=== PATIENT | male | born 1965 | race Caucasian/White ===

== ENCOUNTER → 2020-06-17 08:53 | Outpatient (CLI) | payer OTHER, SELFPAY ==
--- NOTE | ~2020-06-17 | XR_ITS ---
EXAMINATION: XR chest 2V EXAM DATE: 06/17/2020 09:12 INDICATION: Palpitations. TECHNIQUE: Frontal and lateral projections of the chest obtained and reviewed. There is no prior karl dy for comparison. FINDINGS: The lungs are clear. There are no pleural effusions. The cardiomediastinal silhouette is within normal limits. There is no pneumothorax suspected. The bones and soft tissues are unremarkab le. IMPRESSION: No acute cardiopulmonary findings. Reviewed, dictated and finalized at location A. SPECIALIST
== END ==
PROVIDERS: PCP Internal Medicine; Visit Provider Internal Medicine
DX: R00.2 Palpitations (principal)
CPT/HCPCS: 71046

== ENCOUNTER → 2021-10-02 10:51 | Outpatient (CLI) | payer OTHER, SELFPAY ==
--- NOTE | ~2021-10-02 | US_ITS ---
US abdomen limited DATE: 10/02/2021 11:11 INDICATION: Abnormal liver function tests TECHNIQUE: Real-time imaging of liver, pancreas, gallbladder COMPARISON: None FINDINGS: No hepatic or pancreatic space-occupying mass lesion is detected. Normal hepatopedal portal venous flow direction. No gallstones or gallbladder wall thickening or pericholecystic fluid collection. Negative sonographi c Portillo's sign. The common bile duct measures 4.4 mm, normal. IMPRESSION: Normal examination Reviewed, dictated and finalized at Location [facility]. Reviewed, dictated and finalized at location B. IMPRESSION: Normal examination
== END ==
PROVIDERS: PCP Internal Medicine; Visit Provider Internal Medicine
DX: R94.5 Abnormal results of liver function studies (principal)
CPT/HCPCS: 76705

== ENCOUNTER 2024-04-28 07:08 | Outpatient (CLI) | payer BC, SELFPAY | END 2024-04-28 07:09 | disposition home or self-care (01) | LOC: ANHLAB 07:08 | PROVIDERS: PCP Internal Medicine; Visit Provider Internal Medicine Nephrology | DX: E87.1 Hypo-osmolality and hyponatremia (principal) | CPT/HCPCS: 36415; 82533; 96372; J0834 ==

== ENCOUNTER 2025-03-24 12:51 | Outpatient (CLI) | payer BC, SELFPAY ==
--- NOTE | 2025-03-24 13:20 | NEURO_ITS ---
Impression: # Borderline diabetic complains of increasing cramps and numbness of lower extremities. ? # Axonal Neuropathy with neurogenic changes on Needle/ EMG exam. No fibrillations noted. Nerve Conduction Studies ?Stim Site NR Peak (ms) P-T Amp (?V) Site1 Site2 Delta-P (ms) Dist (cm) Shine (m/s) Left Sup Fibular Anti Sensory (Ant Lat Mall) 14 cm ? 4.9 6.5 14 cm Ant Lat Mall 4.9 16.0 33 Right Sup Fibular Anti Sensory (Ant Lat Mall) 14 cm ? 4.6 8.6 14 cm Ant Lat Mall 4.6 16.0 35 Left Sural Anti Sensory (Lat Mall) Calf ? 3.3 21.1 Calf Lat Mall 3.3 16.0 48 Right Sural Anti Sensory (Lat Mall) Calf ? 3.5 17.2 Calf Lat Mall 3.5 16.0 46 ?Stim Site NR Onset (ms) O-P Amp (mV) Site1 Site2 Delta-0 (ms) Dist (cm) Shine (m/s) Left Peroneal Motor (Vastus Med) Ankle ? 4.2 1.7 Popit Ankle 10.6 45.0 42 Popit ? 14.8 1.4 Right Peroneal Motor (Vastus Med) Ankle ? 2.7 0.2 Popit Ankle 10.8 43.0 40 Popit ? 13.5 0.1 Left Tibial Motor (Abd Glass Brev) Ankle ? 4.6 2.0 Knee Ankle 11.5 46.0 40 Knee ? 16.1 1.3 Right Tibial Motor (Abd Glass Brev) Ankle ? 4.5 1.1 Knee Ankle 11.0 44.0 40 Knee ? 15.5 1.1 F Wave Studies ?NR F-Lat (ms) L-R F-Lat (ms) Left Peroneal (Mrkrs) (EDB) ? 60.59 Right Peroneal (Mrkrs) (EDB)??? DISPERSED RESPONSE NR Left Tibial (Mrkrs) (Abd Hallucis) ? 71.76 2.07 Right Tibial (Mrkrs) (Abd Hallucis) ? 69.69 2.07 Electromyography ?Side Muscle Nerve Root Ins Act Fibs Amp Dur Recrt Comment Right AntTibialis Dp Br Fibular L4-5 Nml Nml Nml >12ms +1 Left AntTibialis Dp Br Fibular L4-5 Nml Nml Nml >12ms +1 Right Ext Dig Brev Dp Br Fibular L5, S1 Nml Nml Nml >12ms +1 Left Ext Dig Brev Dp Br Fibular L5, S1 Nml Nml Nml >12ms +1 Right Fibularis Long Sup Br Fibular L5-S1 Nml Nml Nml >12ms +1 Left Fibularis Long Sup Br Fibular L5-S1 Nml Nml Nml >12ms +1 Right Flex Dig Long Tibial L5-S2 Nml Nml Nml >12ms +2 Left Flex Dig Long Tibial L5-S2 Nml Nml Nml >12ms +2 Right Gastroc Tibial S1-2 Nml Nml Nml >12ms +1 Left Gastroc Tibial S1-2 Nml Nml Nml >12ms +1 Right QuadratusFem QuadFemoris L4-5, S1 Nml Nml Nml Nml Nml Left QuadratusFem QuadFemoris L4-5, S1 Nml Nml Nml Nml Nml ?
--- OUTSIDE RECORDS SUMMARY | 2025-03-24 14:08 | XMS_ITS | Data Portability ---
[facility] [address] [place] [address] Care Team Providers Care Deputy Chief Counsel Name Role Phone WOLFEDAVID Primary Care Provider Assessment Encounter Date Assessment Date Assessment LastModified by Organization Details LastModified Time 10/01/2023 10/01/2023 Had a colonoscop y last year he refuses any immunizations we will continue with current therapy all questions have been answered diagnosis and the assessment and plan of been discussed follow-up in 6 months Not available 10/11/2023 22:43:30 03/31/2024 03/31/2024 hypertension controlled GERD doing well on his PPI we will consider deescalating to H2 eileen in next visit or so psoriasis stable hyperlipidemia low-fat diet. Hyponatremia has been referred to Nephrology. He refuses immunizations he had a colonoscopy at [place] we are requesting the results he will see me in 4 months continue current therapy. As far as his hyponatremia is concerned he appears clinically euvolemic. Not available 04/05/2024 09:31:25 05/29/2024 05/29/2024 medications have been reviewed we will try to get the official reads on the MRI of the brain as well as the echo in the right upper quadrant ultrasound. Notes from hospital state LFTs normalized prior to discharge speech physical therapy and [facility] patient will therapy consults. He does have some paperwork to be filled out it sounds like for short term disability I have directed him to get those to his neurologist who will be making determinations about fitness for work. He will see me back in a month his blood pressure today looks good there has been continued improvement albeit slowly in his neurological status hospital records I do have access to have been reviewed. Healthy lifestyle care instructions [email or web address] Not available 05/30/2024 15:43:51 01/27/2025 01/27/2025 We will continue current therapy blood work has been ordered NCS and ABIs of the legs he will follow up with neurologist well for stroke [email or web address] Not available 01/27/2025 21:48:04 Plan of Treatment Reminders Order Date Submit Date Provider Last Modified By Organization Details Last Modified Time Details Appointments ANY 15 2025 03:00P M David Wolfe MD Not available Not available Not available Lab PSA, serum or plasma 2023 024 [place] [facility] [place] [facility], [address], [address], [place], [address], 12/21/2023 02:53:53 CMP, serum or plasma - Please send copy of results to Dr Glenn Alcantar also. fax 2023 024 [place] [facility] [place] [facility], [address], [place], [address], 12/21/2023 02:53:52 lipid panel, serum 2023 024 [place] [facility], [address], [place], [address], 12/21/2023 02:53:51 CBC w/ auto diff 2023 024 [place] [facility], [address], [place], [address], 12/21/2023 02:53:52 Referral physical therapist referral [address] (Outpatient Physical Therapy), [address], [place], [address], 07/03/2024 23:11:13 occupatio nal therapist referral [address] [facility], [address], [place], [address], 07/03/2024 23:11:13 speech therapy referral [address] [facility], [address], [place], [address], 07/03/2024 23:11:13 Procedures None recorded. Surgeries None recorded. Imaging nerve conductio n study - NCS B/L legs. 2024 025 [facility] (Cardiology & Emg), [address], [place], [address], 02/26/2025 12:39:39 Medication Orders None recorded. Patient TargetsNo targets recorded. Patient Instructions Encounter Date Encounter Id Patient Instructions Last Modified By Organization Details Last Modified Time 03/31/2024 [id number] A healthy lifestyle: care instructions [place] [id number] Not available 03/31/2024 20:43:02 05/29/2024 [id number] A healthy lifestyle: care instructions [email or web address] Not available 05/29/2024 17:10:26 01/27/2025 [id number] eating healthy foods: care instructions [email or web address] Not available 01/27/2025 22:14:17 (HENRY) ankle brachial index* [email or web address] Not available 03/19/2025 09:42:02 Reason for Referral Physical Therapist Referral for Cerebrovascular accident Referring Physician: David Wolfe, Internal Medicine, Encounter Date: 05/29/2024 Occupational Therapist Refer ral for Cerebrovascular accident Referring Physician: David Wolfe, Internal Medicine, Encounter Date: 05/29/2024 Referring Physician: David Wolfe, Internal Medicine, Encounter Date: 05/29/2024 Results Created Date Observation Date Name Description Value Unit Range Abnormal Flag Note LastModifiedBy Organization Detail LastModifiedTime 12/20/19 24 12/21/2023 LIPID PANEL , STAND LENCHO cholesterol, total 167 mg/dL <200 normal Not Available [facility] [place] [address] [place], [address], 12/21/2023 02:53:51 12/20/19 24 12/21/2023 LIPID PANEL , STAND LENCHO HDL cholesterol 83 mg/dL > or = 40 normal Not Available [place] [address] [address] [place], [address], 12/21/2023 02:53:51 12/20/19 24 12/21/2023 LIPID PANEL , STAND LENCHO triglyceride s 59 mg/dL <150 normal Not Available [facility] [place] [address] [address] [place], [address], 12/21/2023 02:53:51 12/20/19 24 12/21/2023 LIPID PANEL , STAND LENCHO LDL-choleste rol 70 mg/dL _(jennifer c) normal Refer ence range : <100 Girish able range <100 mg/dL for prima ry preve ntion ; <70 mg/dL for patie nts with CHD or diabe tic patie nts with > or = 2 CHD risk facto rs. LDL-C is now calcu lated using the Giselle n-Hop kins juanu marcelino n, which is a valid ated novel radha lenz than the Fried nicole equat ion in the estim ation of LDL-C . Giselle ojeda SS et al. SARI. 2013; 310(1 9): 2061- 2068 (http ://ed ucati on.Ronald medina [employer]. com/f aq/FA Q164) Not Available [address] [address] [place], [address], 12/21/2023 02:53:51 12/20/19 24 12/21/2023 LIPID PANEL , STAND LENCHO chol/HDLC ratio 2.0 (calc ) <5.0 normal Not Available [address] [address] [place], [address], 12/21/2023 02:53:51 12/20/19 24 12/21/2023 LIPID PANEL , STAND LENCHO non HDL cholesterol 84 mg/dL _(jennifer c) <130 normal For patie nts with diabe isaiah plus 1 major ASCVD risk facto r, treat ing to a non-H DL-C goal of <100 mg/dL (LDL- C of <70 mg/dL ) is lay see optio n. Not Available [address] [address] [place], [address], 12/21/2023 02:53:51 12/20/19 24 12/21/2023 COMPR EHENS MAICO METAB OLIC PANEL glucose 98 mg/dL 65-99 normal Fasti ng refer ence inter parmjit Not Available [address] [place], [address], 12/21/2023 02:53:52 12/20/19 24 12/21/2023 COMPR EHENS MAICO METAB OLIC PANEL urea nitrogen (BUN) 9 mg/dL 7-25 normal Not Available [address] [address] [place], [address], 12/21/2023 02:53:52 12/20/19 24 12/21/2023 COMPR EHENS MAICO METAB OLIC PANEL creatinine 0.95 mg/dL 0.70-1 .30 normal Not Available [address] [address] [place], [address], 12/21/2023 02:53:52 12/20/19 24 12/21/2023 COMPR EHENS MAICO METAB OLIC PANEL eGFR 94 mL/mi n/1.7 3m2 > or = 60 normal Not Available [address], [address], 12/21/2023 02:53:52 12/20/19 24 12/21/2023 COMPR EHENS MAICO METAB OLIC PANEL BUN/creatini ne ratio SEE NOTE: (calc ) 6-22 Not Repor maxi: BUN and Creat inine are withi n refer ence range . Not Available [facility] - [address], [address], 12/21/2023 02:53:52 12/20/19 24 12/21/2023 COMPR EHENS MAICO METAB OLIC PANEL sodium 130 mmol/ L 135-14 6 low Not Available [address], [address], 12/21/2023 02:53:52 12/20/19 24 12/21/2023 COMPR EHENS MAICO METAB OLIC PANEL potassium 5.0 mmol/ L 3.5-5. 3 normal Not Available [address], [address], 12/21/2023 02:53:52 12/20/19 24 12/21/2023 COMPR EHENS MAICO METAB OLIC PANEL chloride 95 mmol/ L 98-110 low Not Available [address], [address], 12/21/2023 02:53:52 12/20/19 24 12/21/2023 COMPR EHENS MAICO METAB OLIC PANEL carbon dioxide 28 mmol/ L 20-32 normal Not Available [address], [address], 12/21/2023 02:53:52 12/20/19 24 12/21/2023 COMPR EHENS MAICO METAB OLIC PANEL calcium 9.2 mg/dL 8.6-10 .3 normal Not Available [address], [address], 12/21/2023 02:53:52 12/20/19 24 12/21/2023 COMPR EHENS MAICO METAB OLIC PANEL protein, total 7.1 g/dL 6.1-8. 1 normal Not Available [address], [address], 12/21/2023 02:53:52 12/20/19 24 12/21/2023 COMPR EHENS MAICO METAB OLIC PANEL albumin 4.5 g/dL 3.6-5. 1 normal Not Available [address], [address], 12/21/2023 02:53:52 12/20/19 24 12/21/2023 COMPR EHENS MAICO METAB OLIC PANEL globulin 2.6 g/dL_ (calc ) 1.9-3. 7 normal Not Available [address], [address], 12/21/2023 02:53:52 12/20/19 24 12/21/2023 COMPR EHENS MAICO METAB OLIC PANEL albumin/glob ulin ratio 1.7 (calc ) 1.0-2. 5 normal Not Available [address], [address], 12/21/2023 02:53:52 12/20/19 24 12/21/2023 COMPR EHENS MAICO METAB OLIC PANEL bilirubin, total 0.6 mg/dL 0.2-1. 2 normal Not Available [address], [address], 12/21/2023 02:53:52 12/20/19 24 12/21/2023 COMPR EHENS MAICO METAB OLIC PANEL alkaline phosphatase 57 U/L 35-144 normal Not Available [address], [address], 12/21/2023 02:53:52 12/20/19 24 12/21/2023 COMPR EHENS MAICO METAB OLIC PANEL AST 35 U/L 10-35 normal Not Available [address], [address], 12/21/2023 02:53:52 12/20/19 24 12/21/2023 COMPR EHENS MAICO METAB OLIC PANEL ALT 39 U/L 9-46 normal Not Available [address], [address], 12/21/2023 02:53:52 12/20/19 24 12/21/2023 CBC (INCL UDES DIFF/ PLT) white blood cell count 4.5 thous and/u L 3.8-10 .8 normal Not Available [address], [address], 12/21/2023 02:53:52 12/20/19 24 12/21/2023 CBC (INCL UDES DIFF/ PLT) red blood cell count 4.21 everette on/uL 4.20-5 .80 normal Not Available [address], [address], 12/21/2023 02:53:52 12/20/19 24 12/21/2023 CBC (INCL UDES DIFF/ PLT) hemoglobin 13.0 g/dL 13.2-1 7.1 low Not Available [address], [address], 12/21/2023 02:53:52 12/20/19 24 12/21/2023 CBC (INCL UDES DIFF/ PLT) hematocrit 38.7 % 38.5-5 0.0 normal Not Available [address], [address], 12/21/2023 02:53:52 12/20/19 24 12/21/2023 CBC (INCL UDES DIFF/ PLT) MCV 91.9 fL 80.0-1 00.0 normal Not Available [address], [address], 12/21/2023 02:53:52 12/20/19 24 12/21/2023 CBC (INCL UDES DIFF/ PLT) MCH 30.9 pg 27.0-3 3.0 normal Not Available [address], [address], 12/21/2023 02:53:52 12/20/19 24 12/21/2023 CBC (INCL UDES DIFF/ PLT) MCHC 33.6 g/dL 32.0-3 6.0 normal Not Available [address], [address], 12/21/2023 02:53:52 12/20/19 24 12/21/2023 CBC (INCL UDES DIFF/ PLT) RDW 13.1 % 11.0-1 5.0 normal Not Available [address], [address], 12/21/2023 02:53:52 12/20/19 24 12/21/2023 CBC (INCL UDES DIFF/ PLT) platelet count 328 thous and/u L 140-40 0 normal Not Available [address], [address], 12/21/2023 02:53:52 12/20/19 24 12/21/2023 CBC (INCL UDES DIFF/ PLT) MPV 9.4 fL 7.5-12 .5 normal Not Available [address], [address], 12/21/2023 02:53:52 12/20/19 24 12/21/2023 CBC (INCL UDES DIFF/ PLT) absolute neutrophils 2268 cells /uL 1500-7 800 normal Not Available [address], [address], 12/21/2023 02:53:52 12/20/19 24 12/21/2023 CBC (INCL UDES DIFF/ PLT) absolute lymphocytes 1683 cells /uL 850-39 00 normal Not Available [address], [address], 12/21/2023 02:53:52 12/20/19 24 12/21/2023 CBC (INCL UDES DIFF/ PLT) absolute monocytes 410 cells /uL 200-95 0 normal Not Available [address], [address], 12/21/2023 02:53:52 12/20/19 24 12/21/2023 CBC (INCL UDES DIFF/ PLT) absolute eosinophils 108 cells /uL 15-500 normal Not Available [facility] [address], [address], 12/21/2023 02:53:52 12/20/19 24 12/21/2023 CBC (INCL UDES DIFF/ PLT) absolute basophils 32 cells /uL 0-200 normal Not Available [facility] [address], [address], 12/21/2023 02:53:52 12/20/19 24 12/21/2023 CBC (INCL UDES DIFF/ PLT) neutrophils 50.4 % normal Not Available [facility] [address], [address], 12/21/2023 02:53:52 12/20/19 24 12/21/2023 CBC (INCL UDES DIFF/ PLT) lymphocytes 37.4 % normal Not Available [address], [address], 12/21/2023 02:53:52 12/20/19 24 12/21/2023 CBC (INCL UDES DIFF/ PLT) monocytes 9.1 % normal Not Available [facility] [address], [address], 12/21/2023 02:53:52 12/20/19 24 12/21/2023 CBC (INCL UDES DIFF/ PLT) eosinophils 2.4 % normal Not Available [address], [address], 12/21/2023 02:53:52 12/20/19 24 12/21/2023 CBC (INCL UDES DIFF/ PLT) basophils 0.7 % normal Not Available [facility] [address] [place], [address], 12/21/2023 02:53:52 12/20/1912/21/2023 PSA, TOTAL PSA, total 1.57 NG/mL < or = 4.00 normal The total PSA value from this assay syste m is stand ardiz ed again st the WHO stand lencho. The test resul t will be appro ximat erica 20% lower when devonte red to the equim olar- stand ardiz ed total PSA (Jones man Coult er). Devonte rison of seria l PSA resul ts shoul d be inter prete d with this fact in mind. This test was perfo rmed using the Lellane ns chemi lumin escen t metho d. Value s obtai kassie from diffe rent assay metho ds canno t be used inter vences eably . PSA level s, regar dless of value , shoul d not be inter prete d as absol mary's igloo evide nce of the prese nce or absen ce of disea se. Not Available [facility] [address], [address], 12/21/2023 02:53:53 01/17/20 24 01/18/2024 COMPR EHENS MAICO METAB OLIC PANEL glucose 96 mg/dL 65-99 normal Fasti ng refer ence inter parmjit Not Available [facility] [address], [address], 01/18/2024 05:25:15 01/17/20 24 01/18/2024 COMPR EHENS MAICO METAB OLIC PANEL urea nitrogen (BUN) 7 mg/dL 7-25 normal Not Available [facility] [address], [address], 01/18/2024 05:25:15 01/17/20 24 01/18/2024 COMPR EHENS MAICO METAB OLIC PANEL creatinine 0.88 mg/dL 0.70-1 .30 normal Not Available [facility] [address], [address], 01/18/2024 05:25:15 01/17/20 24 01/18/2024 COMPR EHENS MAICO METAB OLIC PANEL eGFR 101 mL/mi n/1.7 3m2 > or = 60 normal Not Available [address], [address], 01/18/2024 05:25:15 01/17/20 24 01/18/2024 COMPR EHENS MAICO METAB OLIC PANEL BUN/creatini ne ratio SEE NOTE: (calc ) 6-22 Not Repor maxi: BUN and Creat inine are withi n refer ence range . Not Available [address], [address], 01/18/2024 05:25:15 01/17/20 24 01/18/2024 COMPR EHENS MAICO METAB OLIC PANEL sodium 128 mmol/ L 135-14 6 low Not Available [address], [address], 01/18/2024 05:25:15 01/17/20 24 01/18/2024 COMPR EHENS MAICO METAB OLIC PANEL potassium 5.2 mmol/ L 3.5-5. 3 normal Not Available [address], [address], 01/18/2024 05:25:15 01/17/20 24 01/18/2024 COMPR EHENS MAICO METAB OLIC PANEL chloride 93 mmol/ L 98-110 low Not Available [address], [address], 01/18/2024 05:25:15 01/17/20 24 01/18/2024 COMPR EHENS MAICO METAB OLIC PANEL carbon dioxide 29 mmol/ L 20-32 normal Not Available [address], [address], 01/18/2024 05:25:15 01/17/20 01/18/2024 COMPR EHENS MAICO METAB OLIC PANEL calcium 9.1 mg/dL 8.6-10 .3 normal Not Available [address], [address], 01/18/2024 05:25:15 01/17/20 24 01/18/2024 COMPR EHENS MAICO METAB OLIC PANEL protein, total 7.3 g/dL 6.1-8. 1 normal Not Available [address], [address], 01/18/2024 05:25:15 01/17/2001/18/2024 COMPR EHENS MAICO METAB OLIC PANEL albumin 4.4 g/dL 3.6-5. 1 normal Not Available [address], [address], 01/18/2024 05:25:15 01/17/20 24 01/18/2024 COMPR EHENS MAICO METAB OLIC PANEL globulin 2.9 g/dL_ (calc ) 1.9-3. 7 normal Not Available [address], [address], 01/18/2024 05:25:15 01/17/20 24 01/18/2024 COMPR EHENS MAICO METAB OLIC PANEL albumin/glob ulin ratio 1.5 (calc ) 1.0-2. 5 normal Not Available [address], [address], 01/18/2024 05:25:15 01/17/20 24 01/18/2024 COMPR EHENS MAICO METAB OLIC PANEL bilirubin, total 1.0 mg/dL 0.2-1. 2 normal Not Available [address], [address], 01/18/2024 05:25:15 01/17/20 24 01/18/2024 COMPR EHENS MAICO METAB OLIC PANEL alkaline phosphatase 61 U/L 35-144 normal Not Available [place] [address] [address] [place], [address], 01/18/2024 05:25:15 01/17/20 24 01/18/2024 COMPR EHENS MAICO METAB OLIC PANEL AST 32 U/L 10-35 normal Not Available [address] [address] [place], [address], 01/18/2024 05:25:15 01/17/20 24 01/18/2024 COMPR EHENS MAICO METAB OLIC PANEL ALT 36 U/L 9-46 normal Not Available [address] [address] [place], [address], 01/18/2024 05:25:15 02/27/2002/28/2024 BASIC METAB OLIC PANEL glucose 106 mg/dL 65-99 high Fasti ng refer ence inter parmjit For someo ne witho ut known diabe isaiah, a gluco se value betwe en 100 and 125 mg/dL is consi stent with predi abete s and shoul d be confi rmed with a follo w-up test. Not Available [address], [address], 02/28/2024 14:32:54 02/27/2002/28/2024 BASIC METAB OLIC PANEL urea nitrogen (BUN) 8 mg/dL 7-25 normal Not Available [address], [address], 02/28/2024 14:32:54 02/27/2002/28/2024 BASIC METAB OLIC PANEL creatinine 0.96 mg/dL 0.70-1 .30 normal Not Available [address], [address], 02/28/2024 14:32:54 02/27/2002/28/2024 BASIC METAB OLIC PANEL eGFR 93 mL/mi n/1.7 3m2 > or = 60 normal Not Available [address], [address], 02/28/2024 14:32:54 02/27/2002/28/2024 BASIC METAB OLIC PANEL BUN/creatini ne ratio SEE NOTE: (calc ) 6-22 Not Repor maxi: BUN and Creat inine are withi n refer ence range . Not Available [address], [address], 02/28/2024 14:32:54 02/27/2002/28/2024 BASIC METAB OLIC PANEL sodium 127 mmol/ L 135-14 6 low Not Available [address], [address], 02/28/2024 14:32:54 02/27/2002/28/2024 BASIC METAB OLIC PANEL potassium 5.4 mmol/ L 3.5-5. 3 high Not Available [address], [address], 02/28/2024 14:32:54 02/27/2002/28/2024 BASIC METAB OLIC PANEL chloride 92 mmol/ L 98-110 low Not Available [address], [address], 02/28/2024 14:32:54 02/27/2002/28/2024 BASIC METAB OLIC PANEL carbon dioxide 29 mmol/ L 20-32 normal Not Available [address], [address], 02/28/2024 14:32:54 02/27/2002/28/2024 BASIC METAB OLIC PANEL calcium 9.4 mg/dL 8.6-10 .3 normal Not Available [facility] [address], [address], 02/28/2024 14:32:54 02/27/2002/28/2024 CORTI POLLY, TOTAL cortisol, total 13.7 mcg/d L normal Refer ence Range : For 8 a.m.( 7-9 a.m.) Speci men: 4.0-2 2.0 Refer ence Range : For 4 p.m.( 3-5 p.m.) Speci men: 3.0-1 7.0 * Pleas e inter pret above resul ts accor dingl y * Not Available [address], [address], 02/28/2024 14:32:55 02/27/20 24 02/28/2024 T4, FREE T4, free 1.1 NG/dL 0.8-1. 8 normal Not Available [address], [address], 02/28/2024 14:32:56 02/27/2002/28/2024 TSH TSH 0.77 mIU/L 0.40-4 .50 normal Not Available [address], [address], 02/28/2024 14:32:57 02/27/2002/28/2024 T3, FREE T3, free 3.7 pg/mL 2.3-4. 2 normal Not Available [address], [address], 02/28/2024 14:32:58 02/27/2002/28/2024 OSMOL ALITY (SERU M) osmolality (serum) 269 mOsm/ kg 278-30 5 low Not Available [address], [address], 02/28/2024 14:32:59 02/27/20 24 02/28/2024 OSMOL ALITY (U) osmolality (U) 232 mOsm/ kg 50-120 0 normal Not Available [address], [address], 02/28/2024 14:33:00 05/19/2005/19/2024 Urina lysis compl ete panel - Urine color UA Pale Yellow text: pale to dark yellow COLOR UA Pale Yello w Pale to Dark Yello w 05/19 11:16 AM 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[employer] [facility] Not Available Not Available 09/14/2024 13:13:32 05/19/20 24 05/19/2024 Urina lysis compl ete panel - Urine clarity UA Clear text: clear SABRINA TY UA Clear Clear 05/19 11:16 AM 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[employer] [facility] Not Available Not Available 09/14/2024 13:13:32 05/19/2005/19/2024 Urina lysis compl ete panel - Urine specific gravity UA 1.023 low: 1.003h igh: 1.035 SPECI FIC GRAVI TY UA 1.023 1.003 - 1.035 05/19 11:16 AM [facility] Not Available Not Available 09/14/2024 13:13:32 05/19/20 24 05/19/2024 Urina lysis compl ete panel - Urine pH UA 7 low: 5high: 8 PH UA 7.0 5.0 - 8.0 05/19 11:16 AM [facility] Not Available Not Available 09/14/2024 13:13:32 05/19/2005/19/2024 Urina lysis compl ete panel - Urine leukocyte esterase UA Negati ve text: negati ve LEUKO CYTE ROBERTH ASE UA Negat maico Negat maico 05/19 11:16 AM [facility] Not Available Not Available 09/14/2024 13:13:32 05/19/2005/19/2024 Urina lysis compl ete panel - Urine nitrite UA Negati ve text: negati ve NITRI TE UA Negat maico Negat maico 05/19 11:16 AM [facility] Not Available Not Available 09/14/2024 13:13:32 05/19/2005/19/2024 Urina lysis compl ete panel - Urine protein [presence] in urine Negati ve text: negati ve PROTE IN UA Negat maico Negat maico 05/19 11:16 AM 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LUCIAN[employer] VALERIANO [facility] Not Available Not Available 09/14/2024 13:13:32 05/19/20 24 05/19/2024 Urina lysis compl ete panel - Urine glucose UA Negati ve text: negati ve GLUCO SE UA Negat maico Negat maico 05/19 11:16 AM 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[employer] [facility] Not Available Not Available 09/14/2024 13:13:32 05/19/20 24 05/19/2024 Urina lysis compl ete panel - Urine ketones UA Negati ve text: negati ve KETON ES UA Negat maico Negat maico 05/19 11:16 AM 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[employer]INCY[employer] [facility] Not Available Not Available 09/14/2024 13:13:32 05/19/20 24 05/19/2024 Urina lysis compl ete panel - Urine urobilinogen UA Normal high: 2mg/dL UROBI LINOG EN UA Beena l <2.0 mg/dL 05/19 11:16 AM 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QUINCY[employer] Ann [facility] Not Available Not Available 09/14/2024 13:13:32 05/19/20 24 05/19/2024 Urina lysis compl ete panel - Urine bilirubin UA Negati ve text: negati ve BILIR UBIN UA Negat maico Negat maico 05/19 11:16 AM 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[employer] [facility] Not Available Not Available 09/14/2024 13:13:32 05/19/20 24 05/19/2024 Urina lysis compl ete panel - Urine blood UA 3+ text: negati ve abnormal BLOOD UA 3+ (A) Negat maico 05/19 11:16 AM 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[employer]IN[employer] [facility] Not Available Not Available 09/14/2024 13:13:32 05/19/20 24 05/19/2024 Urina lysis compl ete panel - Urine WBC UA 26-50 text: 0 - 2 /hpf abnormal WBC UA 26-50 (A) 0 - 2 /hpf 05/19 11:16 AM 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[employer] [facility] Not Available Not Available 09/14/2024 13:13:32 05/19/20 24 05/19/2024 Urina lysis compl ete panel - Urine RBC UA 6-10 text: 0 - 2 /hpf abnormal RBC UA 6-10 (A) 0 - 2 /hpf 05/19 11:16 AM 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[employer] [facility] Not Available Not Available 09/14/2024 13:13:32 05/19/2005/19/2024 Urina lysis compl ete panel - Urine bacteria UA Negati ve text: negati ve /hpf BACTE LAZ UA Negat maico Negat maico /hpf 05/19 11:16 AM 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[employer] [facility] Not Available Not Available 09/14/2024 13:13:32 05/19/20 24 05/19/2024 Urina lysis compl ete panel - Urine epithelial cells, urine 0-5 text: 0 - 5 /hpf EPITH ELIAL CELLS , URINE 0-5 0 - 5 /hpf 05/19 11:16 AM [employer] [facility] Not Available Not Available 09/14/2024 13:13:32 05/19/2005/19/2024 Urina lysis compl ete panel - Urine hyaline cast None Seen text: none seen, 0-2 /lpf HYALI NE CAST None Seen None Seen, 0-2 /lpf 05/19 11:16 AM Nethub [facility] Not Available Not Available 09/14/2024 13:13:32 05/19/20 24 05/19/2024 Urina lysis compl ete panel - Urine interpretati on and review of laboratory results Abnorm al Not Available Not Available 13:13:32 05/19/20 24 05/19/2024 DRUG SCREE N, URINE amphetamine qual, urine Negati ve text: negati ve AMPHE TAMIN E QUAL, URINE Negat maico Negat maico 05/19 11:38 AM 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[employer] [facility] Not Available Not Available 09/14/2024 13:13:32 05/19/20 24 05/19/2024 DRUG SCREE N, URINE barbiturate qual, urine Negati ve text: negati ve SHEILA TURAT E QUAL, URINE Negat maico Negat maico 05/19 11:38 AM 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[employer] LUCILE [facility] Not Available Not Available 09/14/2024 13:13:32 05/19/20 24 05/19/2024 DRUG SCREE N, URINE benzodiazepi ne qual, urine Negati ve text: negati ve BENZO DIAZE PINE QUAL, URINE Negat maico Negat maico 05/19 11:38 AM 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[employer] [facility] Not Available Not Available 09/14/2024 13:13:32 05/19/20 24 05/19/2024 DRUG SCREE N, URINE cocaine qual urine Negati ve text: negati ve COCAI NE QUAL URINE Negat maico Negat maico 05/19 11:38 AM 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[employer] [facility] Not Available Not Available 09/14/2024 13:13:32 05/19/20 24 05/19/2024 DRUG SCREE N, URINE opiate qual, urine Negati ve text: negati ve OPIAT E QUAL, URINE Negat maico Negat maico 05/19 11:38 AM 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 Not Available Not Available 09/14/2024 13:13:32 05/19/20 24 05/19/2024 DRUG SCREE N, URINE cannabinoids qual, urine Negati ve text: negati ve CANNA BINOI DS QUAL, URINE Negat maico Negat maico 05/19 11:38 AM [employer]Lee Ann [facility] Not Available Not Available 09/14/2024 13:13:32 05/19/20 24 05/19/2024 DRUG SCREE N, URINE pcp qual, urine Negati ve text: negati ve PCP QUAL, URINE Negat maico Negat maico 05/19 11:38 AM 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 Not Available Not Available 09/14/2024 13:13:32 05/19/20 24 05/19/2024 DRUG SCREE N, URINE oxycodone qual, urine Negati ve text: negati ve OXYCO DONE QUAL, URINE Negat maico Negat maico 05/19 11:38 AM 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 Not Available Not Available 09/14/2024 13:13:32 05/19/20 24 05/19/2024 DRUG SCREE N, URINE methadone qual, urine Negati ve text: negati ve METHA DONE QUAL, URINE Negat maico Negat maico 05/19 11:38 AM 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 Not Available Not Available 09/14/2024 13:13:32 05/19/20 24 05/19/2024 DRUG SCREE N, URINE fentanyl qual, urine Negati ve text: negati ve FENTA NYL QUAL, URINE Negat maico Negat maico 05/19 11:38 AM 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[facility] Not Available Not Available 09/14/2024 13:13:32 05/19/20 24 05/19/2024 DRUG SCREE N, URINE creatinine, urine 19.5 mg/dL low: 40mg/d Lhigh: 278mg/ dL low CREAT ININE , URINE 19.5 (L) 40.0 - 278.0 mg/dL 05/19 11:38 AM [employer] Not Available Not Available 09/14/2024 13:13:32 05/19/2005/19/2024 DRUG SCREE N, URINE Unknown Analyte This test is a qualit ative screen . The presum ptive positi ve result s should not be used for legal purpos es. If confir mation of result s is desire d, the lab must be contac maxi withou t delay. Drug Ref. Range Screen ing Thresh old Amphet amines Negati ve 500 ng/mL Barbit urates Negati ve 200 ng/mL Benzod iazepi grisel Negati ve 100 ng/mL Cannab inoids Negati ve 50 ng/mL Cocain e Negati ve 150 ng/mL Methad one Negati ve 300 ng/mL Opiate s Negati ve 300 ng/mL Oxycod one Negati ve 100 ng/mL Phency clidin e Negati ve 25 ng/mL Fentan yl Negati ve 5 ng/mL This test is a quali tativ e scree n. The presu mptiv e posit maico resul ts shoul d not be used for legal purpo ses. If confi rmati on of resul ts is girish ed, the lab must be conta cted witho ut delay . Drug Ref. Range Scree zenia Thres hold Amphe tamin es Negat maico 500 ng/mL Sheila turat es Negat maico 200 ng/mL Benzo diaze pines Negat maico 100 ng/mL Canna binoi ds Negat maico 50 ng/mL Cocai ne Negat maico 150 ng/mL Metha done Negat maico 300 ng/mL Opiat es Negat maico 300 ng/mL Oxyco done Negat maico 100 ng/mL Phenc yclid ine Negat maico 25 ng/mL Fenta nyl Negat maico 5 ng/mL Not Available Not Available 09/14/2024 13:13:32 05/19/20 24 05/19/2024 DRUG SCREE N, URINE interpretati on and review of laboratory results Abnorm al Not Available Not Available 13:13:32 05/19/20 24 05/19/2024 Acute hepat itis 2000 panel - Serum hepatitis B virus surface Ag [presence] in serum NON-RE ACTIVE text: non-re active HEPAT ITIS B SURFA CE AG NON-R EACTI VE Non-r eacti ve 05/19 11:46 AM 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[facility] Not Available Not Available 09/14/2024 13:13:32 05/19/20 24 05/19/2024 Acute hepat itis 2000 panel - Serum hepatitis B virus core IgM Ab [presence] in serum NON-RE ACTIVE text: non-re active HEPAT ITIS B CORE IGM NON-R EACTI VE Non-r eacti ve 05/19 11:46 AM 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LUCIANO [employer] [facility] Not Available Not Available 09/14/2024 13:13:32 05/19/20 24 05/19/2024 Acute hepat itis 2000 panel - Serum hepatitis A virus IgM Ab [presence] in serum Non-re active text: non-re active HEPAT ITIS A IGM Non-r eacti ve Non-r eacti ve 05/19 11:46 AM 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[employer] [facility] Not Available Not Available 09/14/2024 13:13:32 05/19/20 24 05/19/2024 Acute hepat itis 2000 panel - Serum hepatitis C virus Ab [presence] in serum NON-RE ACTIVE text: non-re active HEPAT ITIS C AB NON-R EACTI VE Non-r eacti ve 05/19 11:46 AM 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LUCIANO [employer] [facility] Not Available Not Available 09/14/2024 13:13:32 05/19/20 24 05/19/2024 Acute hepat itis 2000 panel - Serum interpretati on and review of laboratory results Normal Not Available Not Available 08/26 13:13:32 05/19/20 24 05/19/2024 Compr ehens maico metab olic 2000 panel - Serum or Plasm a sodium [moles/volum e] in serum or plasma 131 mmol/ L low: 136mmo l/Lhig h: 145mmo l/L low SODIU M 131 (L) 136 - 145 mmol/ L 05/19 8:33 AM 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[employer] [facility] Not Available Not Available 09/14/2024 13:13:32 05/19/20 24 05/19/2024 Compr ehens maico metab olic 2000 panel - Serum or Plasm a potassium [moles/volum e] in serum or plasma 4.2 mmol/ L low: 3.4mmo l/Lhig h: 5.1mmo l/L POTAS SIUM 4.2 3.4 - 5.1 mmol/ L 05/19 8:33 AM 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[employer] [facility] Not Available Not Available 09/14/2024 13:13:32 05/19/20 24 05/19/2024 Compr ehens maico metab olic 1999 panel - Serum or Plasm a chloride 94 mmol/ L low: 98mmol /Lhigh : 107mmo l/L low CHLOR CHANDLER 94 (L) 98 - 107 mmol/ L 05/19 8:33 AM [facility] Not Available Not Available 09/14/2024 13:13:32 05/19/20 24 05/19/2024 Compr ehens maico metab olic 1999 panel - Serum or Plasm a carbon dioxide, total [moles/volum e] in serum or plasma 20 mmol/ L low: 22mmol /Lhigh : 29mmol /L low CO2 20 (L) 22 - 29 mmol/ L 05/19 8:33 AM [facility] Not Available Not Available 09/14/2024 13:13:32 05/19/20 24 05/19/2024 Compr ehens maico metab olic 1999 panel - Serum or Plasm a calcium 9.5 mg/dL low: 8.6mg/ dLhigh : 10.4mg /dL CALCI UM 9.5 8.6 - 10.4 mg/dL 05/19 8:33 AM [facility] Not Available Not Available 09/14/2024 13:13:32 05/19/20 24 05/19/2024 Compr ehens maico metab olic 1999 panel - Serum or Plasm a BUN 10 mg/dL low: 6mg/dL high: 20mg/d L BUN 10 6 - 20 mg/dL 05/19 8:33 AM [facility] Not Available Not Available 09/14/2024 13:13:32 05/19/20 24 05/19/2024 Compr ehens maico metab olic 1999 panel - Serum or Plasm a creatinine [mass/volume ] in serum or plasma 0.95 mg/dL low: 0.67mg /dLhig h: 1.17mg /dL CREAT ININE 0.95 0.67 - 1.17 mg/dL 05/19 8:33 AM [employer] [facility] Not Available Not Available 09/14/2024 13:13:32 05/19/20 24 05/19/2024 Compr ehens maico metab olic 1999 panel - Serum or Plasm a glucose [mass/volume ] in serum or plasma 122 mg/dL low: 74mg/d Lhigh: 99mg/d L high GLUCO SE 122 (H) 74 - 99 mg/dL 05/19 8:33 AM 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[employer] [facility] Not Available Not Available 09/14/2024 13:13:32 05/19/20 24 05/19/2024 Compr ehens maico metab olic 1999 panel - Serum or Plasm a total protein 7.5 g/dL low: 6.3g/d Lhigh: 8.7g/d L TOTAL PROTE IN 7.5 6.3 - 8.7 g/dL 05/19 8:33 AM [employer] [facility] Not Available Not Available 09/14/2024 13:13:32 05/19/20 24 05/19/2024 Compr ens maico metab olic 1999 panel - Serum or Plasm a albumin 4.5 g/dL low: 3.5g/d Lhigh: 5.2g/d L ALBUM IN 4.5 3.5 - 5.2 g/dL 05/19 8:33 AM [employer] Not Available Not Available 09/14/2024 13:13:32 05/19/20 24 05/19/2024 Compr ehens maico metab olic 1999 panel - Serum or Plasm a bilirubin total 0.5 mg/dL low: 0.3mg/ dLhigh : 1.2mg/ dL BILIR UBIN TOTAL 0.5 0.3 - 1.2 mg/dL 05/19 8:33 AM [facility] Not Available Not Available 09/14/2024 13:13:32 05/19/20 24 05/19/2024 Compr ehens maico metab olic 2000 panel - Serum or Plasm a alkaline phosphatase 67 U/L low: 40U/Lh igh: 150U/L ALKAL INE PHOSP HATAS E 67 40 - 150 U/L 05/19 8:33 AM [facility] Not Available Not Available 09/14/2024 13:13:32 05/19/20 24 05/19/2024 Compr ehens maico metab olic 1999 panel - Serum or Plasm a AST 44 U/L low: 0U/Lhi gh: 41U/L high AST 44 (H) 0 - 41 U/L 05/19 8:33 AM [facility] Not Available Not Available 09/14/2024 13:13:32 05/19/20 24 05/19/2024 Compr ehens maico metab olic 1999 panel - Serum or Plasm a alanine aminotransfe rase [enzymatic activity/vol ume] in blood 47 U/L low: 0U/Lhi gh: 41U/L high ALT 47 (H) 0 - 41 U/L 05/19 8:33 AM [facility] Not Available Not Available 09/14/2024 13:13:32 05/19/20 24 05/19/2024 Compr ehens maico metab olic 1999 panel - Serum or Plasm a glomerular filtration rate [volume rate/area] in serum, plasma or blood by creatinine-b ased formula (CKD-epi 2020)/1.73 sq M text: >=60 mL/min /1.73 sq meter GFR >60 >=60 mL/mi n/1.7 3 sq meter 05/19 8:33 AM [facility] Not Available Not Available 09/14/2024 13:13:32 05/19/20 24 05/19/2024 Compr ehens maico metab olic 1999 panel - Serum or Plasm a anion gap 17 mmol/ L low: 8mmol/ Lhigh: 16mmol /L high ANION GAP 17 (H) 8 - 16 mmol/ L 05/19 8:33 AM [facility] Not Available Not Available 09/14/2024 13:13:32 05/19/20 24 05/19/2024 Compr ehens maico metab olic 2000 panel - Serum or Plasm a interpretati on and review of laboratory results Abnorm al Not Available Not Available 13:13:32 05/19/2005/19/2024 CBC W Auto Diffe kwabena al panel - Blood leukocytes [#/volume] in blood 5.6 K/uL low: 4K/uLh igh: 9.8K/u L WBC 5.6 4.0 - 9.8 K/uL 05/19 8:07 AM [facility] Not Available Not Available 09/14/2024 13:13:31 05/19/20 24 05/19/2024 CBC W Auto Diffe kwabena finn panel - Blood RBC 4.45 text: 4.50 - 5.40 M/uL low RBC 4.45 (L) 4.50 - 5.40 M/uL 05/19 8:07 AM [facility] Not Available Not Available 09/14/2024 13:13:31 05/19/20 24 05/19/2024 CBC W Auto Diffe kwabena finn panel - Blood hemoglobin 13.7 g/dL low: 13.6g/ dLhigh : 16.5g/ dL HEMOG LOBIN 13.7 13.6 - 16.5 g/dL 05/19 8:07 AM [facility] Not Available Not Available 09/14/2024 13:13:31 05/19/20 24 05/19/2024 CBC W Auto Maddi finn panel - Blood hematocrit [volume fraction] of blood by automated count 39.9 % low: 40%hig h: 48% low HEMAT OCRIT 39.9 (L) 40.0 - 48.0 % 05/19 8:07 AM [employer] [facility] Not Available Not Available 09/14/2024 13:13:31 05/19/20 24 05/19/2024 CBC W Auto Diffe kwabena al panel - Blood MCV 89.7 fL low: 82fLhi gh: 99fL MCV 89.7 82.0 - 99.0 fL 05/19 8:07 AM [employer] [facility] Not Available Not Available 09/14/2024 13:13:31 05/19/20 24 05/19/2024 CBC W Auto Diffe renti al panel - Blood MCH 30.8 pg low: 27.2pg high: 32.6pg MCH 30.8 27.2 - 32.6 pg 05/19 8:07 AM [facility] Not Available Not Available 09/14/2024 13:13:31 05/19/20 24 05/19/2024 CBC W Auto Diffe renti al panel - Blood MCHC 34.3 g/dL low: 31.5g/ dLhigh : 35.5g/ dL MCHC 34.3 31.5 - 35.5 g/dL 05/19 8:07 AM 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[employer] [facility] Not Available Not Available 09/14/2024 13:13:31 05/19/20 24 05/19/2024 CBC W Auto Diffe renti al panel - Blood RDW 12.7 % low: 11.5%h igh: 14.5% RDW 12.7 11.5 - 14.5 % 05/19 8:07 AM [facility] Not Available Not Available 09/14/2024 13:13:31 05/19/20 24 05/19/2024 CBC W Auto Diffe renti al panel - Blood RDW-stdev 41.8 fL low: 37.1fL high: 48.7fL RDW-S TDEV 41.8 37.1 - 48.7 fL 05/19 8:07 AM [facility] Not Available Not Available 09/14/2024 13:13:31 05/19/20 24 05/19/2024 CBC W Auto Diffe renti al panel - Blood platelets [#/volume] in blood by automated count 346 K/uL low: 140K/u Lhigh: 350K/u L PLATE LETS 346 140 - 350 K/uL 05/19 8:07 AM [facility] Not Available Not Available 09/14/2024 13:13:31 05/19/20 24 05/19/2024 CBC W Auto Diffe renti al panel - Blood MPV 8.7 fL low: 9.3fLh igh: 12.4fL low MPV 8.7 (L) 9.3 - 12.4 fL 05/19 8:07 AM 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[employer] [facility] Not Available Not Available 09/14/2024 13:13:31 05/19/20 24 05/19/2024 CBC W Auto Diffe renti al panel - Blood neutrophils 56 % NEUTR OPHIL S 56 % 05/19 8:07 AM 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[employer] [facility] Not Available Not Available 09/14/2024 13:13:31 05/19/2005/19/2024 CBC W Auto Diffe renti al panel - Blood lymphocytes/ leukocytes in blood by automated count 32 % LYMPH OCYTE S 32 % 05/19 8:07 AM [facility] Not Available Not Available 09/14/2024 13:13:31 05/19/20 24 05/19/2024 CBC W Auto Diffe renti al panel - Blood monocytes 9 % MONOC YTES 9 % 05/19 8:07 AM 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[employer] [facility] Not Available Not Available 09/14/2024 13:13:31 05/19/20 24 05/19/2024 CBC W Auto Diffe renti al panel - Blood eosinophils 2 % EOSIN OPHIL S 2 % 05/19 8:07 AM [facility] Not Available Not Available 09/14/2024 13:13:31 05/19/20 24 05/19/2024 CBC W Auto Diffe renti al panel - Blood basophils 1 % BASOP HILS 1 % 05/19 8:07 AM [facility] Not Available Not Available 09/14/2024 13:13:31 05/19/20 24 05/19/2024 CBC W Auto Diffe renti al panel - Blood immature granulocytes 1 % IMMAT URE GRANU LOCYT ES 1 % 05/19 8:07 AM [facility] Not Available Not Available 09/14/2024 13:13:31 05/19/20 24 05/19/2024 CBC W Auto Diffe renti al panel - Blood neutrophils [#/volume] in blood by automated count 3.14 K/uL low: 1.9K/u Lhigh: 7K/uL NEUTR OPHIL ABSOL [place] 3.14 1.90 - 7.00 K/uL 05/19 8:07 AM [facility] Not Available Not Available 09/14/2024 13:13:31 05/19/20 24 05/19/2024 CBC W Auto Diffe renti al panel - Blood lymphocyte absolute 1.79 K/uL low: 0.7K/u Lhigh: 4.5K/u L LYMPH OCYTE ABSOL [place] 1.79 0.70 - 4.50 K/uL 05/19 8:07 AM [facility] Not Available Not Available 09/14/2024 13:13:31 05/19/20 24 05/19/2024 CBC W Auto Diffe renti al panel - Blood monocyte absolute 0.5 K/uL low: 0.1K/u Lhigh: 1.3K/u L MONOC YTE ABSOL [place] 0.50 0.10 - 1.30 K/uL 05/19 8:07 AM [facility] Not Available Not Available 09/14/2024 13:13:31 05/19/20 24 05/19/2024 CBC W Auto Diffe renti al panel - Blood eosinophil absolute 0.12 K/uL low: 0K/uLh igh: 0.7K/u L EOSIN OPHIL ABSOL [place] 0.12 0.00 - 0.70 K/uL 05/19 8:07 AM [facility] Not Available Not Available 09/14/2024 13:13:31 05/19/20 24 05/19/2024 CBC W Auto Diffe renti al panel - Blood basophils absolute 0.03 K/uL low: 0K/uLh igh: 0.2K/u L BASOP HILS ABSOL [place] 0.03 0.00 - 0.20 K/uL 05/19 8:07 AM [facility] Not Available Not Available 09/14/2024 13:13:31 05/19/20 24 05/19/2024 CBC W Auto Diffe renti al panel - Blood immature granulocytes absolute 0.03 K/uL low: 0K/uLh igh: 0.03K/ uL IMMAT URE GRANU LOCYT ES ABSOL [place] 0.03 0.00 - 0.03 K/uL 05/19 8:07 AM 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[employer] [facility] Not Available Not Available 09/14/2024 13:13:31 05/19/20 24 05/19/2024 CBC W Auto Diffe renti al panel - Blood interpretati on and review of laboratory results Abnorm al Not Available Not Available 13:13:31 05/20/20 24 05/20/2024 Basic metab olic 1999 panel - Serum or Plasm a sodium [moles/volum e] in serum or plasma 133 mmol/ L low: 136mmo l/Lhig h: 145mmo l/L low SODIU M 133 (L) 136 - 145 mmol/ L 05/20 5:14 AM [facility] Not Available Not Available 09/14/2024 13:13:32 05/20/20 24 05/20/2024 Basic metab olic 1999 panel - Serum or Plasm a potassium [moles/volum e] in serum or plasma 4 mmol/ L low: 3.4mmo l/Lhig h: 5.1mmo l/L POTAS SIUM 4.0 3.4 - 5.1 mmol/ L 05/20 5:14 AM [facility] Not Available Not Available 09/14/2024 13:13:32 05/20/20 24 05/20/2024 Basic metab olic 1999 panel - Serum or Plasm a chloride 97 mmol/ L low: 98mmol /Lhigh : 107mmo l/L low CHLOR CHANDLER 97 (L) 98 - 107 mmol/ L 05/20 5:14 AM [facility] Not Available Not Available 09/14/2024 13:13:32 05/20/20 24 05/20/2024 Basic metab olic 1999 panel - Serum or Plasm a carbon dioxide, total [moles/volum e] in serum or plasma 23 mmol/ L low: 22mmol /Lhigh : 29mmol /L CO2 23 22 - 29 mmol/ L 05/20 5:14 AM [facility] Not Available Not Available 09/14/2024 13:13:32 05/20/20 24 05/20/2024 Basic metab olic 1999 panel - Serum or Plasm a calcium 9.1 mg/dL low: 8.6mg/ dLhigh : 10.4mg /dL CALCI UM 9.1 8.6 - 10.4 mg/dL 05/20 5:14 AM [facility] Not Available Not Available 09/14/2024 13:13:32 05/20/20 24 05/20/2024 Basic metab olic 1999 panel - Serum or Plasm a BUN 12 mg/dL low: 6mg/dL high: 20mg/d L BUN 12 6 - 20 mg/dL 05/20 5:14 AM [facility] Not Available Not Available 09/14/2024 13:13:32 05/20/20 24 05/20/2024 Basic metab olic 2000 panel - Serum or Plasm a creatinine [mass/volume ] in serum or plasma 0.99 mg/dL low: 0.67mg /dLhig h: 1.17mg /dL CREAT ININE 0.99 0.67 - 1.17 mg/dL 05/20 5:14 AM [facility] Not Available Not Available 09/14/2024 13:13:32 05/20/20 24 05/20/2024 Basic metab olic 2000 panel - Serum or Plasm a glucose [mass/volume ] in serum or plasma 113 mg/dL low: 74mg/d Lhigh: 99mg/d L high GLUCO SE 113 (H) 74 - 99 mg/dL 05/20 5:14 AM [employer]Lee Ann [facility] Not Available Not Available 09/14/2024 13:13:32 05/20/20 24 05/20/2024 Basic metab olic 2000 panel - Serum or Plasm a glomerular filtration rate [volume rate/area] in serum, plasma or blood by creatinine-b ased formula (CKD-epi 2020)/1.73 sq M text: >=60 mL/min /1.73 sq meter GFR >60 >=60 mL/mi n/1.7 3 sq meter 05/20 5:14 AM [facility] Not Available Not Available 09/14/2024 13:13:32 05/20/20 24 05/20/2024 Basic metab olic 2000 panel - Serum or Plasm a anion gap 13 mmol/ L low: 8mmol/ Lhigh: 16mmol /L ANION GAP 13 8 - 16 mmol/ L 05/20 5:14 AM [facility] Not Available Not Available 09/14/2024 13:13:32 05/20/20 24 05/20/2024 Basic metab olic 2000 panel - Serum or Plasm a interpretati on and review of laboratory results Abnorm al Not Available Not Available 13:13:32 05/20/20 24 05/20/2024 CBC W Auto Diffe renti al panel - Blood leukocytes [#/volume] in blood 7.1 K/uL low: 4K/uLh igh: 9.8K/u L WBC 7.1 4.0 - 9.8 K/uL 05/20 4:47 AM [facility] Not Available Not Available 09/14/2024 13:13:32 05/20/20 24 05/20/2024 CBC W Auto Diffe renti al panel - Blood RBC 4.17 text: 4.50 - 5.40 M/uL low RBC 4.17 (L) 4.50 - 5.40 M/uL 05/20 4:47 AM [facility] Not Available Not Available 09/14/2024 13:13:32 05/20/20 24 05/20/2024 CBC W Auto Diffe renti al panel - Blood hemoglobin 12.9 g/dL low: 13.6g/ dLhigh : 16.5g/ dL low HEMOG LOBIN 12.9 (L) 13.6 - 16.5 g/dL 05/20 4:47 AM 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[facility] Not Available Not Available 09/14/2024 13:13:32 05/20/20 24 05/20/2024 CBC W Auto Diffe renti al panel - Blood hematocrit [volume fraction] of blood by automated count 37.8 % low: 40%hig h: 48% low HEMAT OCRIT 37.8 (L) 40.0 - 48.0 % 05/20 4:47 AM 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[employer] [facility] Not Available Not Available 09/14/2024 13:13:32 05/20/20 24 05/20/2024 CBC W Auto Diffe renti al panel - Blood MCV 90.6 fL low: 82fLhi gh: 99fL MCV 90.6 82.0 - 99.0 fL 05/20 4:47 AM 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 Not [facility] Not Available 09/14/2024 13:13:32 05/20/20 24 05/20/2024 CBC W Auto Diffe renti al panel - Blood MCH 30.9 pg low: 27.2pg high: 32.6pg MCH 30.9 27.2 - 32.6 pg 05/20 4:47 AM 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 [facility] Not Available Not Available 09/14/2024 13:13:32 05/20/20 24 05/20/2024 CBC W Auto Diffe renti al panel - Blood MCHC 34.1 g/dL low: 31.5g/ dLhigh : 35.5g/ dL MCHC 34.1 31.5 - 35.5 g/dL 05/20 4:47 AM 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 Not Available Not Available 09/14/2024 13:13:32 05/20/20 24 05/20/2024 CBC W Auto Diffe renti al panel - Blood RDW 12.6 % low: 11.5%h igh: 14.5% RDW 12.6 11.5 - 14.5 % 05/20 4:47 AM [facility] Not Available Not Available 09/14/2024 13:13:32 05/20/20 24 05/20/2024 CBC W Auto Diffe renti al panel - Blood RDW-stdev 41.4 fL low: 37.1fL high: 48.7fL RDW-S TDEV 41.4 37.1 - 48.7 fL 05/20 4:47 AM [facility] Not Available Not Available 09/14/2024 13:13:32 05/20/20 24 05/20/2024 CBC W Auto Diffe renti al panel - Blood platelets [#/volume] in blood by automated count 305 K/uL low: 140K/u Lhigh: 350K/u L PLATE LETS 305 140 - 350 K/uL 05/20 4:47 AM [facility] Not Available Not Available 09/14/2024 13:13:32 05/20/20 24 05/20/2024 CBC W Auto Diffe renti al panel - Blood MPV 9 fL low: 9.3fLh igh: 12.4fL low MPV 9.0 (L) 9.3 - 12.4 fL 05/20 4:47 AM [facility] Not Available Not Available 09/14/2024 13:13:32 05/20/20 24 05/20/2024 CBC W Auto Diffe renti al panel - Blood neutrophils 60 % NEUTR OPHIL S 60 % 05/20 4:47 AM [facility] Not Available Not Available 09/14/2024 13:13:32 05/20/20 24 05/20/2024 CBC W Auto Diffe renti al panel - Blood lymphocytes/ leukocytes in blood by automated count 28 % LYMPH OCYTE S 28 % 05/20 4:47 AM [facility] Not Available Not Available 09/14/2024 13:13:32 05/20/20 24 05/20/2024 CBC W Auto Diffe renti al panel - Blood monocytes 10 % MONOC YTES 10 % 05/20 4:47 AM 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 [facility] Not Available Not Available 09/14/2024 13:13:32 05/20/20 24 05/20/2024 CBC W Auto Diffe renti al panel - Blood eosinophils 1 % EOSIN OPHIL S 1 % 05/20 4:47 AM 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 [facility] Not Available Not Available 09/14/2024 13:13:32 05/20/20 24 05/20/2024 CBC W Auto Diffe renti al panel - Blood basophils 1 % BASOP HILS 1 % 05/20 4:47 AM [facility] Not Available Not Available 09/14/2024 13:13:32 05/20/20 24 05/20/2024 CBC W Auto Diffe renti al panel - Blood immature granulocytes 0 % IMMAT URE GRANU LOCYT ES 0 % 05/20 4:47 AM [facility] Not Available Not Available 09/14/2024 13:13:32 05/20/20 24 05/20/2024 CBC W Auto Diffe renti al panel - Blood neutrophils [#/volume] in blood by automated count 4.28 K/uL low: 1.9K/u Lhigh: 7K/uL NEUTR OPHIL ABSOL [place] 4.28 1.90 - 7.00 K/uL 05/20 4:47 AM [facility] Not Available Not Available 09/14/2024 13:13:32 05/20/20 24 05/20/2024 CBC W Auto Diffe renti al panel - Blood lymphocyte absolute 1.99 K/uL low: 0.7K/u Lhigh: 4.5K/u L LYMPH OCYTE ABSOL [place] 1.99 0.70 - 4.50 K/uL 05/20 4:47 AM [facility] Not Available Not Available 09/14/2024 13:13:32 05/20/20 24 05/20/2024 CBC W Auto Diffe renti al panel - Blood monocyte absolute 0.71 K/uL low: 0.1K/u Lhigh: 1.3K/u L MONOC YTE ABSOL [place] 0.71 0.10 - 1.30 K/uL 05/20 4:47 AM 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 [facility] Not Available Not Available 09/14/2024 13:13:32 05/20/20 24 05/20/2024 CBC W Auto Diffe renti al panel - Blood eosinophil absolute 0.07 K/uL low: 0K/uLh igh: 0.7K/u L EOSIN OPHIL ABSOL [place] 0.07 0.00 - 0.70 K/uL 05/20 4:47 AM 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 [facility] Not Available Not Available 09/14/2024 13:13:32 05/20/20 24 05/20/2024 CBC W Auto Diffe renti al panel - Blood basophils absolute 0.04 K/uL low: 0K/uLh igh: 0.2K/u L BASOP HILS ABSOL [place] 0.04 0.00 - 0.20 K/uL 05/20 4:47 AM 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 [facility] Not Available Not Available 09/14/2024 13:13:32 05/20/20 24 05/20/2024 CBC W Auto Diffe renti al panel - Blood immature granulocytes absolute 0.02 K/uL low: 0K/uLh igh: 0.03K/ uL IMMAT URE GRANU LOCYT ES ABSOL [place] 0.02 0.00 - 0.03 K/uL 05/20 4:47 AM [facility] Not Available Not Available 09/14/2024 13:13:32 05/20/20 24 05/20/2024 CBC W Auto Diffe renti al panel - Blood interpretati on and review of laboratory results Abnorm al Not Available Not Available 13:13:32 02/02/20 25 02/03/2025 LIPID PANEL , STAND LENCHO cholesterol, total 151 mg/dL <200 normal Not Available [facility] [place] [address] [place], [address], 02/03/2025 16:15:51 02/02/2002/03/2025 LIPID PANEL , STAND LENCHO HDL cholesterol 82 mg/dL > or = 40 normal Not Available [facility] [address] [place], [address], 02/03/2025 16:15:51 02/02/20 25 02/03/2025 LIPID PANEL , STAND LENCHO triglyceride s 45 mg/dL <150 normal Not Available [facility] [place] [address] [place], [address], 02/03/2025 16:15:51 02/02/2002/03/2025 LIPID PANEL , STAND LENCHO LDL-choleste rol 56 mg/dL _(jennifer c) normal Refer ence range : <100 Girish able range <100 mg/dL for prima ry preve ntion ; <70 mg/dL for patie nts with CHD or diabe tic patie nts with > or = 2 CHD risk facto rs. LDL-C is now calcu lated using the Giselle n-Hop kins juanu marcelino n, which is a valid ated novel missyo d jj patricio r accur acy than the Fried nicole equat ion in the estim ation of LDL-C . Giselle ojeda SS et al. SARI. 2013; 310(1 9): 2061- 2068 (http ://ed ucati on.Qu Rose medina [employer]. com/f aq/FA Q164) Not Available [facility] [address] [place], [address], 02/03/2025 16:15:51 02/02/2002/03/2025 LIPID PANEL , STAND LENCHO chol/HDLC ratio 1.8 (calc ) <5.0 normal Not Available [facility] [address] [place], [address], 02/03/2025 16:15:51 02/02/2002/03/2025 LIPID PANEL , STAND LENCHO non HDL cholesterol 69 mg/dL _(jennifer c) <130 normal For patie nts with diabe isaiah plus 1 major ASCVD risk facto r, treat ing to a non-H DL-C goal of <100 mg/dL (LDL- C of <70 mg/dL ) is nataliei marc see optio n. Not Available [address], [address], 02/03/2025 16:15:51 02/02/2002/03/2025 COMPR EHENS MAICO METAB OLIC PANEL glucose 129 mg/dL 65-139 normal Non-f astin g refer ence inter parmjit Not Available [address], [address], 02/03/2025 16:15:52 02/02/2002/03/2025 COMPR EHENS MAICO METAB OLIC PANEL urea nitrogen (BUN) 13 mg/dL 7-25 normal Not Available [address], [address], 02/03/2025 16:15:52 02/02/20 25 02/03/2025 COMPR EHENS MAICO METAB OLIC PANEL creatinine 1.05 mg/dL 0.70-1 .30 normal Not Available [address], [address], 02/03/2025 16:15:52 02/02/2002/03/2025 COMPR EHENS MAICO METAB OLIC PANEL eGFR 83 mL/mi n/1.7 3m2 > or = 60 normal Not Available [address], [address], 02/03/2025 16:15:52 02/02/20 25 02/03/2025 COMPR EHENS MAICO METAB OLIC PANEL BUN/creatini ne ratio SEE NOTE: (calc ) 6-22 Not Repor maxi: BUN and Creat inine are withi n refer ence range . Not Available [address], [address], 02/03/2025 16:15:52 02/02/2002/03/2025 COMPR EHENS MAICO METAB OLIC PANEL sodium 127 mmol/ L 135-14 6 low Not Available [facility] [address], [address], 02/03/2025 16:15:52 02/02/2002/03/2025 COMPR EHENS MAICO METAB OLIC PANEL potassium 5.1 mmol/ L 3.5-5. 3 normal Not Available [facility] [address], [address], 02/03/2025 16:15:52 02/02/2002/03/2025 COMPR EHENS MAICO METAB OLIC PANEL chloride 92 mmol/ L 98-110 low Not Available [address], [address], 02/03/2025 16:15:52 02/02/20 25 02/03/2025 COMPR EHENS MAICO METAB OLIC PANEL carbon dioxide 28 mmol/ L 20-32 normal Not Available [address], [address], 02/03/2025 16:15:52 02/02/2002/03/2025 COMPR EHENS MAICO METAB OLIC PANEL calcium 9.4 mg/dL 8.6-10 .3 normal Not Available [facility] [address], [address], 02/03/2025 16:15:52 02/02/2002/03/2025 COMPR EHENS MAICO METAB OLIC PANEL protein, total 7.2 g/dL 6.1-8. 1 normal Not Available [facility] [address], [address], 02/03/2025 16:15:52 02/02/20 25 02/03/2025 COMPR EHENS MAICO METAB OLIC PANEL albumin 4.4 g/dL 3.6-5. 1 normal Not Available [address], [address], 02/03/2025 16:15:52 02/02/20 25 02/03/2025 COMPR EHENS MAICO METAB OLIC PANEL globulin 2.8 g/dL_ (calc ) 1.9-3. 7 normal Not Available [address], [address], 02/03/2025 16:15:52 02/02/2002/03/2025 COMPR EHENS MAICO METAB OLIC PANEL albumin/glob ulin ratio 1.6 (calc ) 1.0-2. 5 normal Not Available [address], [address], 02/03/2025 16:15:52 02/02/20 25 02/03/2025 COMPR EHENS MAICO METAB OLIC PANEL bilirubin, total 1.0 mg/dL 0.2-1. 2 normal Not Available [address], [address], 02/03/2025 16:15:52 02/02/20 25 02/03/2025 COMPR EHENS MAICO METAB OLIC PANEL alkaline phosphatase 63 U/L 35-144 normal Not Available [address], [address], 02/03/2025 16:15:52 02/02/20 25 02/03/2025 COMPR EHENS MAICO METAB OLIC PANEL AST 19 U/L 10-35 normal Not Available [address], [address], 02/03/2025 16:15:52 02/02/20 25 02/03/2025 COMPR EHENS MAICO METAB OLIC PANEL ALT 20 U/L 9-46 normal Not Available [address], [address], 02/03/2025 16:15:52 02/02/2002/03/2025 CBC (INCL UDES DIFF/ PLT) white blood cell count 7.3 thous and/u L 3.8-10 .8 normal Not Available [address], [address], 02/03/2025 16:15:52 02/02/2002/03/2025 CBC (INCL UDES DIFF/ PLT) red blood cell count 4.30 everette on/uL 4.20-5 .80 normal Not Available [address], [address], 02/03/2025 16:15:52 02/02/2002/03/2025 CBC (INCL UDES DIFF/ PLT) hemoglobin 12.9 g/dL 13.2-1 7.1 low Not Available [address], [address], 02/03/2025 16:15:52 02/02/2002/03/2025 CBC (INCL UDES DIFF/ PLT) hematocrit 39.7 % 38.5-5 0.0 normal Not Available [address], [address], 02/03/2025 16:15:52 02/02/2002/03/2025 CBC (INCL UDES DIFF/ PLT) MCV 92.3 fL 80.0-1 00.0 normal Not Available [address], [address], 02/03/2025 16:15:52 02/02/2002/03/2025 CBC (INCL UDES DIFF/ PLT) MCH 30.0 pg 27.0-3 3.0 normal Not Available [facility] [address], [address], 02/03/2025 16:15:52 02/02/2002/03/2025 CBC (INCL UDES DIFF/ PLT) MCHC 32.5 g/dL 32.0-3 6.0 normal For adult s, a sligh t decre ase in the calcu lated MCHC value (in the range of 30 to 32 g/dL) is most likel y not clini nitza signi ficsimone t; lyla er, it shoul d be inter prete d with cauti on in [facility] [place] n with other red cell paty eters and the patie nt's clini jennifer condi tion. Not Available [facility] [address], [address], 02/03/2025 16:15:52 02/02/2002/03/2025 CBC (INCL UDES DIFF/ PLT) RDW 14.4 % 11.0-1 5.0 normal Not Available [facility] [address], [address], 02/03/2025 16:15:52 02/02/2002/03/2025 CBC (INCL UDES DIFF/ PLT) platelet count 315 thous and/u L 140-40 0 normal Not Available [facility] [address], [address], 02/03/2025 16:15:52 02/02/2002/03/2025 CBC (INCL UDES DIFF/ PLT) MPV 9.4 fL 7.5-12 .5 normal Not Available [facility] [address], [address], 02/03/2025 16:15:52 02/02/2002/03/2025 CBC (INCL UDES DIFF/ PLT) absolute neutrophils 5147 cells /uL 1500-7 800 normal Not Available [facility] [address], [address], 02/03/2025 16:15:52 02/02/2002/03/2025 CBC (INCL UDES DIFF/ PLT) absolute lymphocytes 1504 cells /uL 850-39 00 normal Not Available [address], [address], 02/03/2025 16:15:52 02/02/2002/03/2025 CBC (INCL UDES DIFF/ PLT) absolute monocytes 540 cells /uL 200-95 0 normal Not Available [address], [address], 02/03/2025 16:15:52 02/02/2002/03/2025 CBC (INCL UDES DIFF/ PLT) absolute eosinophils 80 cells /uL 15-500 normal Not Available [address], [address], 02/03/2025 16:15:52 02/02/2002/03/2025 CBC (INCL UDES DIFF/ PLT) absolute basophils 29 cells /uL 0-200 normal Not Available [address], [address], 02/03/2025 16:15:52 02/02/2002/03/2025 CBC (INCL UDES DIFF/ PLT) neutrophils 70.5 % normal Not Available [address], [address], 02/03/2025 16:15:52 02/02/2002/03/2025 CBC (INCL UDES DIFF/ PLT) lymphocytes 20.6 % normal Not Available [address], [address], 02/03/2025 16:15:52 02/02/2002/03/2025 CBC (INCL UDES DIFF/ PLT) monocytes 7.4 % normal Not Available [address], [address], 02/03/2025 16:15:52 02/02/20 25 02/03/2025 CBC (INCL UDES DIFF/ PLT) eosinophils 1.1 % normal Not Available [address], [address], 02/03/2025 16:15:52 02/02/20 25 02/03/2025 CBC (INCL UDES DIFF/ PLT) basophils 0.4 % normal Not Available [address], [address], 02/03/2025 16:15:52 02/02/20 25 02/03/2025 PSA (FREE AND TOTAL ) PSA, total 1.9 NG/mL < or = 4.0 Not Available [address], [address], 02/03/2025 16:15:53 02/02/2002/03/2025 PSA (FREE AND TOTAL ) PSA, free 0.4 NG/mL Not Available [address], [address], 02/03/2025 16:15:53 02/02/2002/03/2025 PSA (FREE AND TOTAL ) PSA, % free 21 %_(ca lc) >25 low PSA(n g/mL) Free PSA(% ) Estim ated( x) Proba bilit y of Cance r(as% ) 0-2.5 (*) Appro x. 1 2.6-4 .0(1) 0-27( 2) 24(3) 4.1-1 0(4) 0-10 56 11-15 28 16-20 20 21-25 16 >or =26 8 >10(+ ) N/A >50 Refer ences :(1)C jayson na et al.:U rolog y 60: 469-4 74 (2001 ) (2)Ca emily renae et al.:J .Urol 168: 922-9 25 (2001 ) Free PSA(% ) Sensi tivit y(%) Speci ficit y(%) < or = 25 85 19 < or = 30 93 9 (3)Shanice renae et al.:J AMA 277: 1452- 1455 (1996 ) (4)Shanice renae et al.:J AMA 279: 1542- 1547 (1997 ) (x)Th aidan estim ates vary with age, ethni city, famil y histo ry and ANDREI resul ts. (*)Th e diagn ostic usefu lness of % Free PSA has not been estab lishe d in patie nts with total PSA below 2.6 ng/mL (+)In men with PSA above 10 ng/mL , prost ate cance r risk is deter mined by total PSA alone . The Total PSA value from this assay syste m is stand ardiz ed again st the equim olar PSA stand lencho. The test resul t will be appro ximat erica 20% highe r when devonte red to the WHO-s tanda rdize d Total PSA (Siem ens assay ). Devonte rison of seria l PSA resul ts shoul d be inter prete d with this fact in mind. PSA was perfo rmed using the Beckm an Coult er Immun oassa y metho d. Value s obtai kassie from diffe rent assay metho ds canno t be used inter vences eably . PSA level s, regar dless of value , shoul d not be inter prete d as absol mary's igloo evide nce of the prese nce or absen ce of disea se. Not Available [facility] [address] [place], [address], 02/03/2025 16:15:53 Result Notes None recorded. Problems Name Problem SNOMED Code Status Onset Date Resolution Date Notes Provider Name and Address Organization Details Recorded Time Essential hypertension 38707586 Active 2023 David Wolfe MD Attn: Cristy olivas,[address] [facility], [place], [address] [place] [address] SI 4 22:43:31 Hyperlipidemia 92390426 Active 2023 David Wolfe MD Attn: Cristy olivas,[address] [facility], [place], [address], [place] - [facility] 4 22:43:45 Psoriasis 4792378 Active 2023 David Wolfe MD Attn: rCisty olivas,[address] [facility], [place], [address], [place] - [facility] 4 22:44:06 Gastroesophage al reflux disease without esophagitis 445683994 Active 2023 David Wolfe MD Attn: Cristy olivas,[address] [facility], [place], [address], [place] - [facility] 4 09:27:35 Cerebrovascula r accident 578244412 Active 2024 Mary Cheng MA null, [place] - [facility] 5 14:31:40 Problem Notes None recorded. Medical Equipment None Reported. Allergies Allergen ID Allergen Name Allergen Category Reaction Reaction Severity Criticality Documentation Date Start Date Code Code System Note Provider Name and Address Organization Details Recorded Time 230490 cefazolin medicatio n swelling Not available low 10/01/2023 2180 RxNorm Rashmi Jaramillo MA null, [place] - [facility] 4 15:11:53 Medications Name Sig Start Date Stop Date Status Note LastModified by Organization Details LastModified Time latanoprost 0.005 % eye drops active Not Available Not Available Not Available atorvastati n 80 mg tablet TAKE 1 TABLET BY MOUTH EVERY DAY 2024 active Not Available Not Available Not Avai lable carvedilol 6.25 mg tablet TAKE 1 TABLET BY MOUTH TWICE A DAY active Not Available Not Available No t Available atorvastati n 20 mg tablet take 1 tablet by mouth every day 05/30 completed Not Available Not Available Not Available ketoconazol e 2 % shampoo USE A SHAMPOO ONCE A WEEK OR WITH NORMAL HAIR CARE ROUTINE active Not Available Not Available No t Available clopidogrel 75 mg tablet active Not Available Not Available Not Available famotidine 20 mg tablet active Not Available Not Available Not Available methotrexat e sodium 2.5 mg tablet TAKE 6 TABLETS ORAL EVERY WEEK ON THE SAME DAY active Not Available Not Available No t Available lisinopril 10 mg tablet TAKE 1 TABLET BY MOUTH TWICE A DAY APPOINTME NT REQUIRED FOR FURTHER REFILLS PER DR WOLFE) 2024 active see pt case/ labs [address] Wolfe . Not Available Not Available Not Available omeprazole 20 mg capsule,del ayed release TAKE 1 CAPSULE BY MOUTH EVERY DAY 2024 active Not Available Not Available Not Avai lable aspirin 81 mg chewable tablet TAKE 1 TABLET BY MOUTH DAILY WITH BREAKFAST . active Not Available Not Available No t Available folic acid 1 mg tablet TAKE 1 TABLET BY MOUTH EVERY DAY ON DAYS NOT TAKING METHOTREX ATE active Not Available Not Available No t Available clobetasol 0.05 % topical ointment APPLY ONCE A DAY TO AFFECTED AREAS NEEDED FOR 6 WEEKS active Not Available Not Available No t Available aspirin 81 mg capsule Take 1 capsule every day by oral route. 01/05 completed Not Available Not Available Not Available Vitals Date Recorded Body height Body mass index (BMI) Body weight Heart rate Oxygen saturation Oxygen saturation in Arterial blood by Pulse oximetry Systolic And Diastolic Provider Name and Address Organization Details Last Updated DateTime 5 182.88 cm 27.1 kg/m2 43741.0 4 g 70 /min 99 % 99 % 134/70 mm[Hg] Rashmi Jaramillo MA [facility] 5 13:53:45 Date Recorded Body height Body mass index (BMI) Body weight Heart rate Oxygen saturation Oxygen saturation in Arterial blood by Pulse oximetry Systolic And Diastolic Provider Name and Address Organization Details Last Updated DateTime 4 182.88 cm 26.5 kg/m2 78694.8 7 g 90 /min 96 % 96 % 116/70 mm[Hg] Rashmi Jaramillo MA [facility] 4 15:18:42 Date Recorded Body height Body mass index (BMI) Body weight Heart rate Oxygen saturation Oxygen saturation in Arterial blood by Pulse oximetry Systolic And Diastolic Provider Name and Address Organization Details Last Updated DateTime 5 182.88 cm 25.7 kg/m2 04562.3 9 g 81 /min 96 % 96 % 130/68 mm[Hg] Rashmi Jaramillo MA [place] - [facility] 5 16:08:28 Date Recorded Body height Body mass index (BMI) Body weight Heart rate Oxygen saturation Oxygen saturation in Arterial blood by Pulse oximetry Systolic And Diastolic Provider Name and Address Organization Details Last Updated DateTime 4 182.88 cm 27.1 kg/m2 05344.4 7 g 92 /min 99 % 99 % 130/84 mm[Hg] Milady Carlson MA [place] - [facility] 4 15:57:46 Social History Question Answer Notes LastModified by Organizat ion Details LastModified Time Do You Have An Advance Directive? No Information n ot available 10/01/2023 How Many Years Have You Consumed Alcohol? 20 Information not available 10/01/2023 Are You Blind Or Do You Have Difficulty Seeing? Yes Glasses Information n ot available 10/01/2023 What Is Your Level Of Caffeine Consumption? Occasional Tea Information not available 10/01/2023 In The 14 Days Before Symptom Onset, Have You Had Close Contact With A Laboratory-confirm ed COVID-19 While That Case Was Ill? No Information n ot available 10/01/2023 In The 14 Days Before Symptom Onset, Have You Had Close Contact With A Person Who Is Under Investigation For COVID-19 While That Person Was Ill? No Information not available 10/01/2023 Have You Been To An Area Known To Be High Risk For COVID-19? No Information not available 10/01/2023 Are You Deaf Or Do You Have Serious Difficulty Hearing? No Information not available 10/01/2023 What Type Of Diet Are You Following? REGULAR Information n ot available 10/01/2023 Are There Any Guns Present In Your Home? No Information not available 10/01/2023 What Was The Date Of Your Most Recent Tobacco Screening? 01/27/2025 Information not available 01/27/2025 What Is Your Relationship Status? Information not available 10/01/2023 Do You Use Your Seat Belt Or Car Seat Routinely? Yes Information not available 10/01/2023 Do You Have Smoke And Carbon Monoxide Detectors In Your Home? Yes Information not available 10/01/2023 Do You Use Sunscreen Routinely? Yes Information not available 10/01/2023 Has Tobacco Cessation Counseling Been Provided? No Information not available 10/01/2023 Sex: Male Functional Status Question Answer Note LastModified by Organizat ion Details LastModified Time Do you use any illicit or recreational drugs? No Information not available 10/01/2023 Do you or have you ever used any other forms of tobacco or nicotine? Yes Information not available 10/01/2023 What is your level of alcohol consumption? Occasional Information not available 10/01/2023 Do you or have you ever used smokeless tobacco? Former smokeless tobacco user Information not available 10/01/2023 Are you currently employed? Yes Information not available 10/01/2023 Are you able to care for yourself independently? 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 Never used electronic cigarettes Information not available 10/01/2023 What is your exercise level? None Information not available 10/01/2023 Mental Status Question Answer Note LastModified by Organization D etails LastModified Time Do you feel stressed (tense, restless, nervous, or anxious, or unable to sleep at night)? [id number] Information not available 10/01/2023 Family History Relationship Description Onset Age of this Age Resolved Age Notes LastModified by Organization Details LastModified Time Mother Malignant neoplasm of breast mebyma Not available 2023 15:12:17 Mother Hypertensive disorder mebyma Not available 2023 15:12:40 Father Malignant neoplasm of colon mebyma Not available 2023 15:12:24 Father Dementia mebyma Not available 0 10/01/2023 15:12:32 Father Hypertensive disorder mebyma Not available 2023 15:12:40 Father Hypercholest erolemia mebyma Not available 2023 15:12:47 Medical History Condition Response Skin Problems Y Acid Reflux (GERD) Y High Blood Pressure Y High Cholesterol Y Immunizations Vaccine Type Date Status Note Provider Nam e and Address Organization Details Recorded Time COVID-19, mRNA, LNP-S, PF, 100 mcg/0.5mL dose or 50 mcg/0.25mL dose 09/08/2020 completed Mary Cheng MA [place], [place] - [facility] 04/01/2024 09:17:33 COVID-19, mRNA, LNP-S, PF, 100 mcg/0.5mL dose or 50 mcg/0.25mL dose 10/06/2020 completed Mary Cheng MA [place], [place] - [facility] 04/01/2024 09:17:33 Past Encounters Encounter ID Performer Location Encounter Start Date Encounter Closed Date Diagnosis/Indication Diagnosis SNOMED-CT Code Diagnosis ICD10 Code Diagnosis IMO Codes Diagnosis Note [id number] David Wolfe MD [facility] (Adult Med) [address] [place] [phone] 10/01/2023 14:42:19 10/01/2023 15:51:40 Essential hypertension 70047773 I10 Screening for malignant neoplasm of prostate 332665303 Z12.5 Hyperlipidemia 65907863 E78.5 Psoriasis 0237619 L40.9 [id number] David Wolfe MD [facility] (Adult Med) [address] [place] [id number] 03/31/2024 15:45:50 03/31/2024 16:45:14 Body mass index 25-29 - overweight 087043474 Z68.27 Overweight 044768264 E66 .3 Essential hypertension 38854567 I10 Hyperlipidemia 44574421 E78.5 Psoriasis 9773764 L40.9 Hyponatremia 78786010 E8 7.1 [id number] David Wolfe MD [facility] (Adult Med) [address] [place] [id number] 05/29/2024 13:31:37 05/29/2024 14:54:50 Body mass index 25-29 - overweight 943011450 Z68.27 Overweight 197317307 E66 .3 Essential hypertension 20460130 I10 Cerebrovas cular accident 518699820 I63.9 Hyperlipidemia 74447924 E78.5 Psoriasis 0844651 L40.9 [id number] David Wolfe MD [facility] (Adult Med) [address] [place] [id number] 01/27/2025 15:56:06 01/27/2025 16:50:25 Overweight in adulthood with body mass index of 25 or more but less than 30 995870214 E66.3 Z68.25 2039618902 BMI 25.7 Pain in bi lateral legs 1232646961 5040729 M79.604 M79.605 514013 Numbness o f lower limb 783761091 R20.0 727392 Essential hypertension 18529042 I10 Hyperlipidemia 26170360 E78.5 Gastroesop hageal reflux disease without esophagitis 399676431 K21.9 Psoriasis 3561472 L40.9 Health Concerns Section Related Observation LastModified by Organization Detai ls LastModified Time None Recorded Concern Status LastModified by Organization Details LastModified Time None Recorded Advance Directives Directive N: Payers Insurance Date Sequence Insurance Name Policy Number Policy Mosley Covered Member ID Mosley Member ID Guarantor Name 01/25/2025 1 [place] [id number] Tk Yung [id number] Tk Yung Notes Date Note Type Note Provider Name and Address Organization Details Recorded Time 10/01/2023 text/html 58-year-old with hypertension hyperlipidemia psoriasis follow-up of medical problems been doing fine with regards to his aforementioned medical problems with no specific complaints David Wolfe MD Attn: [address] [place], [address], [facility] 10/11/2023 22:44:35 03/31/2024 text/html hypertension no chest pain headache or dizziness. Hyperlipidemia he has been able to conservatively manage this. Psoriasis appears to be stable at this time he has a little bit of trouble losing weight.Hyponatremia asymptomatic workup maybe suggestive of SIADH he has been referred to Nephrology who he was seeing next week David Wolfe MD Attn: [address] [place], [address], [facility] - SI 04/05/2024 09:31:45 05/29/2024 text/html Had a stroke went to [facility] workup was largely unremarkable echo per notes stated normal CT angiogram head and great vessels of the neck no occlusive disease MRI brain right basal ganglia stroke initial symptoms were left arm heaviness left leg heaviness and left facial droop patient received TNK with stroke scale going from 5-1 still with some residual left facial droop he says that his arm and leg are doing fine initially had some amlodipine while in the hospital but not on it currently A1c 5.9 in the hospital had some elevated LFTs right upper quadrant ultrasound was reportedly normal per notes I do not have an official copy started on dual antiplatelet therapy in his atorvastatin was increased to 80 mg daily. He has not been set up with therapy at states he is swallowing fine David Wolfe MD Attn: Accounting,[address] [facility], [place], [address], [facility] 05/30/2024 15:44:13 01/27/2025 text/html He has been having some numbness in his legs bilaterally more in the feet sometimes some pain as well hypertension no headache or dizziness tries to follow low-fat diet psoriasis has been doing well no new problems from his stroke still has not followed up with the new neurologist in his GERD has been stable David Wolfe MD Attn: Accounting,[address] [facility], [place], [address], [facility] 01/27/2025 21:49:07
--- OUTSIDE RECORDS SUMMARY | 2025-03-24 14:08 | XMS_ITS | Clinical Summary ---
Author Organization [facility] Address [address] [place] [address] Phone Care Team Providers Care Process Design Chemical Engineer Name Role Phone Damon Wolfe MD Primary Care Provider [phone] Allergies No known active allergies Medications lisinopriL (PRINIVIL) 10 mg tablet Take 10 mg by mouth 2 times daily. Active carvediloL (COREG) 6.25 mg tablet Take 6.25 mg by mouth 2 times daily with meals. Active omeprazole (PriLOSEC) 20 mg Capsule, Delayed Release(E.C.) Take 20 mg by mouth daily. Active folic acid (FOLVITE) 1 mg tablet Take 1 mg by mouth daily. Does not take on Mondays due to methotrexate Active methotrexate (RHEUMATREX) 2.5 mg Tablet Take 2.5 mg by mouth every 7 days. mondays Active Active Problems Problem Noted Date Diagnosed Date Acute ischemic right MCA stroke 05/19/2024 Acute left-sided weakness 05/19/2024 Facial droop due to acute stroke 05/19/2024 Transaminitis 05/19/2024 Accelerated hypertension 05/19/2024 Benign hypertension 05/19/2024 Mixed hyperlipidemia 05/19/2024 High anion gap metabolic acidosis 05/19/2024 Encounters Date Type Department Care Team Description 03/17/2025 External Device Data [facility] Provider, Abstract 02/09/2025 External Device Data [facility] Provider, Abstract 01/05/2025 External Device Data [facility] Provider, Abstract from Last 3 Months Social History Tobacco Use Types Packs/Day Years Used Date Smoking Tobacco: Never Assessed Feeling Safe Answer Date Recorded Are you in a relationship wi th someone who hurts you emotionally and/or physically? No 05/20/2024 Food Insecurity Answer Date Recorded Patient needs follow up regardin 09/17/2024 Transportation Needs Answer Date Record ed Patient needs follow up regardin 09/17/2024 Housing Stability Answer Date Recorded Social/Environmental Concerns No concerns Utility Needs Answer Date Recorded Patient needs follow up regardin 09/17/2024 Sex and Gender Information Value Date Recorded Sex Assigned at Not on file Legal Sex Male 7:43 AM [employer] Gender Identity Not on file Sexual Orientation Not on file Last Filed Vital Signs Vital Sign Reading Time Taken Comments Blood Pressure 150/97 05/20/2024 12:00 PM [employer] Pulse 57 05/20/2024 6:30 AM [employer] Temperature 36.7 C (98.1 F) 05/20/2024 10:41 AM [employer] Respiratory Rate 20 05/20/2024 12:27 PM [employer] Oxygen Saturation 96% 05/20/2024 12:15 PM [employer] Inhaled Oxygen Concentration - - Weight 89 kg (196 lb 1.6 oz) 05/20/2024 4:29 AM [employer] Height - - Body Mass Index - - Plan of Treatment Health Maintenance Due Date Last Done Comments DTAP/TDAP/TD VACCINES (1 - Tdap) 1986 HEPATITIS B VACCINES (1 of 3 - 19+ 3-dose series) 04/26 FIT-DNA Q 3 years 2012 FIT/FOBT Q 1 year 2012 Flex Sig/CT Colonography Q 5 years 2012 ZOSTER VACCINE (1 of 2) 2017 INFLUENZA VACCINE (#1) 2024 COLORECTAL SCREENING 06/22/2025 06/22/2015 Colorectal Cancer Screening 06/22/2025 Insurance [employer] BLUE ACCESS/TRUE BLUE PPO Advance Directives For more information, please contact: [phone] * Full Code (Latest Code Status on File) Date Activated Date Inactivated Comments 05/19/2024 9:29 AM 05/20/2024 3:16 PM Care Teams Process Design Chemical Engineer Relationship Specialty Start Date End Date Damon Wolfe MD [address] [place] [address] PCP - General Internal Medicine 05/19/24
== END 2025-03-24 12:52 | disposition home or self-care (01) ==
PROVIDERS: PCP Internal Medicine; Visit Provider Internal Medicine
DX: R20.0 Anesthesia of skin (principal)
CPT/HCPCS: 95886; 95910